=== PATIENT | male | born 2000 | race Caucasian/White ===

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

== ENCOUNTER 2022-01-22 17:58 | Emergency (ER) | payer OTHER, SELFPAY ==
--- NOTE | 2022-01-22 18:13 | ED.URI ---
HPI - URI/Sore Throat General Chief Complaint: Upper Respiratory Infection Stated Complaint: cough,nasal congestion Time Seen by Provider: 01/22/22 18:13 Source: patient Mode of arrival: ambulatory Limitations: no limitations History of Present Illness HPI Narrative: Catracho is a 21-year-old male patient presenting to the clinic today with complaints of cough and runny nose x3 days. He reports he did have a low-grade fever at the beginning of his symptoms however now he is just having congestion and constant coughing. Most the cough is dry however he does bring up mucus at times but does not know the color of the mucus as he does not look. States his symptoms started out as allergies. His brother has a history of asthma. Does have history of eczema and seasonal allergies MD elicited complaint: sore throat and nasal congestion Related Data Allergies Allergy/AdvReac Type Severity Reaction Status Date / Time No Known Allergies Allergy Verified 01/22/22 19:16 Review of Systems Review of Systems: Pertinent positives per HPI. Patient denies any fever, chills, rash, headache, visual changes, dizziness, sore throat, chest pain, palpitations, nausea, vomiting, diarrhea, constipation, abdominal pain, or any urinary issues. PMFSH Past Medical History Medical History Gilbert syndrome Seasonal allergic rhinitis Seasonal allergies Surgical History Surgical History History of hernia surgery History of tonsillectomy Family History Family History Mother No problems noted. Sibling Asthma Grandparent Prostate carcinoma Hypertension Social History Social History Smoking status: Never smoker Alcohol intake: never Substance use: never Gender identity (if verbalized by the patient): Male Spiritual care concerns: No Comments At the time of my signature, I reviewed and agree with the nursing past medical, surgical, social, and family history. There is no relevant family history pertinent to the patient complaint. Exam Narrative: General: Well-developed, well nourished, in no apparent distress Head: Normocephalic, atraumatic Eyes: Pupils equally round and reactive to light bilaterally, EOM intact, sclera and conjunctive clear, no discharge, lids normal Ears: TMs intact and congested, ear canals clear, no drainage, grossly hearing normal. Nose: Nares patent, clear nasal discharge, moderate inflammation, no sinus tenderness. Mouth: Oral pharynx without lesions or masses, good dentition, MMM. Neck: Supple, trachea midline, no enlargement of anterior or posterior cervical nodes, no thyroid masses or goiter palpable. Cardio: Regular rate and rhythm, s1 and s2 normal, no murmur appreciated. Resp: Expiratory wheezing without respiratory difficulty, dry cough, no rhonchi, rales, or rubs Course Course Emergency Course: Portions of this record may have been created with voice recognition software. Level of Care: Express Care Visit Vital Signs Vital signs: Vital Signs Temperature 36.5 C 01/22/22 18:20 Pulse Rate 88 01/22/22 18:20 Respiratory Rate 18 01/22/22 18:20 Blood Pressure 119/81 01/22/22 18:20 Pulse Oximetry 100 01/22/22 18:20 Oxygen Delivery Room Air 01/22/22 18:20 Temperature 36.5 C 01/22/22 18:20 Pulse Rate 97 01/22/22 19:18 Respiratory Rate 18 01/22/22 19:18 Blood Pressure 119/81 01/22/22 18:20 Pulse Oximetry 100 01/22/22 19:18 Oxygen Delivery Room Air 01/22/22 18:20 Vital signs reviewed MDM - URI/Sore Throat MDM Narrative Medical decision making narrative: At the time of visit patient is resting comfortably on exam table. Patient has a dry cough with wheezing. I suspect the patient has bronchitis. Will
[2022-01-22 18:20] VITALS: BP 119/81; PULSE 88; RESP 18; TEMP 36.5; O2SAT 100
[2022-01-22] MEDS: ALBUTEROL SULFATE NEB 2.5 MG/3 ML INH INHALATION (18:59)
[2022-01-22] MEDS: IPRATROPIUM BR 0.02% INH SOLN 0.5 MG/2.5 ML VIAL INHALATION (18:59)
[2022-01-22 19:00] VITALS: PULSE 88; RESP 18; O2SAT 100
[2022-01-22 19:18] VITALS: PULSE 97; RESP 18; O2SAT 100
== END 2022-01-22 19:20 | disposition home or self-care (01) ==
PROVIDERS: Emergency Provider Nurse Practitioner Family; PCP Registered Nurse
DX: J40 Bronchitis, not specified as acute or chronic (principal); E80.4 Gilbert syndrome
CPT/HCPCS: 94640; 99213; G0463

== ENCOUNTER 2022-09-12 09:00 | Emergency (ER) | payer OTHER, SELFPAY ==
[2022-09-12 09:06] VITALS: BP 119/69; PULSE 88; RESP 18; TEMP 36.6; O2SAT 100
--- NOTE | 2022-09-12 09:33 | ED.URI ---
HPI - URI/Sore Throat General Chief Complaint: Upper Respiratory Infection Stated Complaint: Sore Throat,Rt Ear Irritation Time Seen by Provider: 09/12/22 09:22 Source: patient and RN notes reviewed Mode of arrival: ambulatory Limitations: no limitations History of Present Illness HPI Narrative: Patient presents today with a one-week history of rhinorrhea, cough, sneezing, with right ear pain and sore throat that started yesterday. He currently rates his pain 4/10 and has been taking Claritin for his allergies symptoms without much relief. History of tonsillectomy. No recent antibiotic use. Related Data Allergies Allergy/AdvReac Type Severity Reaction Status Date / Time No Known Allergies Allergy Verified 09/12/22 09:01 Review of Systems Review of Systems: CONSTITUTIONAL: Denies body aches, fever, chills, or sweats. EYES: Denies visual changes, redness, or discharge. ENT: Denies congestion.+ rhinorrhea, right ear pain, sore throat, sneezing CARDIOVASCULAR: Denies chest pain, palpitations, or edema. RESPIRATORY: Denies dyspnea.+ cough GASTROINTESTINAL: Denies abdominal pain, nausea, vomiting, or diarrhea. GENITOURINARY: Denies dysuria or hematuria. SKIN: Denies rash, itching, or wounds. MUSCULOSKELETAL: Denies back pain, joint pain, or myalgia. NEUROLOGIC: Denies headache, numbness, tingling, or weakness. PSYCH: Denies depression or anxiety. [facility] Past Medical History Medical History Gilbert syndrome Seasonal allergic rhinitis Seasonal allergies Surgical History Surgical History History of hernia surgery History of tonsillectomy Family History Family History Mother No problems noted. Sibling Asthma Grandparent Prostate carcinoma Hypertension Social History Social History Smoking status: Never smoker Alcohol intake: never Substance use: never Living arrangements: with family Occupation/Education: student Gender identity (if verbalized by the patient): Male Spiritual care concerns: No Comments At time of signature, I have reviewed and agree with nursing past medical, surgical, social and family history unless otherwise noted. Please see nursing chart for further information. There is no relevant family history pertinent to the presenting complaint Exam Narrative: GENERAL: Well-appearing, well-nourished, and in no acute distress. HEAD: Normocephalic, atraumatic. EYES: EOMI. No redness or drainage. Conjunctivae normal. ENT: Mucous membranes pink and moist. Nares congested with rhinorrhea. TMs normal bilaterally. Throat erythematous with mild edema. No exudate. Tonsils absent. Uvula midline. NECK: Normal AROM. Supple. No lymphadenopathy. CHEST: No respiratory distress. Clear to auscultation. HEART: Regular rate and rhythm. No murmur appreciated. EXTREMITIES: Normal range of motion. No edema. SKIN: Warm, dry, no rash. Capillary refill normal. Normal skin turgor. NEURO: No focal deficits. Alert and oriented x3. Gait steady. PSYCH: Normal affect. No signs of depression or anxiety. Course Course Level of Care: Express Care Visit Vital Signs Vital signs: Vital Signs Temperature 97.8 F 09/12/22 09:06 Pulse Rate 88 09/12/22 09:06 Respiratory Rate 18 09/12/22 09:06 Blood Pressure 119/69 09/12/22 09:06 Pulse Oximetry 100 09/12/22 09:06 Oxygen Delivery Room Air 09/12/22 09:06 Temperature 97.8 F 09/12/22 09:06 Pulse Rate 88 09/12/22 09:06 Respiratory Rate 18 09/12/22 09:06 Blood Pressure 119/69 09/12/22 09:06 Pulse Oximetry 100 09/12/22 09:06 Oxygen Delivery Room Air 09/12/22 09:06 Reviewed MDM - URI/Sore Throat MDM Narrative Medical decision making narrative: Rapid str
== END 2022-09-12 09:38 | disposition home or self-care (01) ==
PROVIDERS: Emergency Provider Nurse Practitioner; PCP Registered Nurse
DX: J02.0 Streptococcal pharyngitis (principal); E80.4 Gilbert syndrome
CPT/HCPCS: 87880; 99213; G0463

== ENCOUNTER 2022-09-19 16:58 | Emergency (ER) | payer OTHER, SELFPAY ==
[2022-09-19 17:08] VITALS: BP 110/79; PULSE 83; RESP 20; TEMP 36.6; O2SAT 100
--- NOTE | 2022-09-19 17:28 | ED.URI ---
HPI - URI/Sore Throat General Chief Complaint: Upper Respiratory Infection Stated Complaint: cold symptoms Time Seen by Provider: 09/19/22 17:21 Source: patient, family, RN notes reviewed and old records reviewed Mode of arrival: ambulatory Limitations: no limitations History of Present Illness HPI Narrative: If patient presents today complaining of cough, postnasal drip. He was diagnosed with strep throat at [facility] on 09/12/2022 and placed on 10 days of amoxicillin, which he has been taking as prescribed. Five days ago his cough got worse and he developed a fever for 2 days. The fever has since resolved. He has been trying Benadryl, TheraFlu, cold and flu medicine, and ibuprofen with minimal relief. States his cough is fairly constant. Denies shortness of breath. No history of asthma. States sore throat strep throat has resolved. Related Data Allergies Allergy/AdvReac Type Severity Reaction Status Date / Time No Known Allergies Allergy Verified 09/19/22 17:11 Review of Systems Review of Systems: CONSTITUTIONAL: Denies body aches, fever, chills, or sweats. EYES: Denies visual changes, redness, or discharge. ENT: Denies rhinorrhea, sore throat, or otalgia.+ congestion, postnasal drip CARDIOVASCULAR: Denies chest pain, palpitations, or edema. RESPIRATORY: Denies dyspnea.+ cough GASTROINTESTINAL: Denies abdominal pain, nausea, vomiting, or diarrhea. GENITOURINARY: Denies dysuria or hematuria. SKIN: Denies rash, itching, or wounds. MUSCULOSKELETAL: Denies back pain, joint pain, or myalgia. NEUROLOGIC: Denies headache, numbness, tingling, or weakness. PSYCH: Denies depression or anxiety. [facility] Past Medical History Medical History Gilbert syndrome Seasonal allergic rhinitis Seasonal allergies Surgical History Surgical History History of hernia surgery History of tonsillectomy Family History Family History Mother No problems noted. Sibling Asthma Grandparent Prostate carcinoma Hypertension Social History Social History Smoking status: Never smoker Alcohol intake: never Substance use: never Living arrangements: with family Occupation/Education: student Gender identity (if verbalized by the patient): Male Spiritual care concerns: No Comments At time of signature, I have reviewed and agree with nursing past medical, surgical, social and family history unless otherwise noted. Please see nursing chart for further information. There is no relevant family history pertinent to the presenting complaint Exam Narrative: GENERAL: Well-appearing, well-nourished, and in no acute distress. HEAD: Normocephalic, atraumatic. EYES: EOMI. No redness or drainage. Conjunctivae normal. ENT: Mucous membranes pink and moist. Nares congested. No rhinorrhea. TMs normal bilaterally. Throat normal. Uvula midline. NECK: Normal AROM. Supple. No lymphadenopathy. CHEST: No respiratory distress. Clear to auscultation. Frequent cough noted. HEART: Regular rate and rhythm. No murmur appreciated. Normal peripheral pulses. EXTREMITIES: Normal range of motion. No edema. SKIN: Warm, dry, no rash. Capillary refill normal. Normal skin turgor. NEURO: No focal deficits. Alert and oriented x3. Gait steady. PSYCH: Normal affect. No signs of depression or anxiety. Course Course Level of Care: Express Care Visit Vital Signs Vital signs: Vital Signs Temperature 97.8 F 09/19/22 17:08 Pulse Rate 83 09/19/22 17:08 Respiratory Rate 20 09/19/22 17:08 Blood Pressure 110/79 09/19/22 17:08 Pulse Oximetry 100 09/19/22 17:08 Oxygen Delivery Room Air 09/19/22 17:08 Temperature 97.8 F 09/19/22 17:08 Pulse Rate 83 09/19/22 17:08 Respir
== END 2022-09-19 17:33 | disposition home or self-care (01) ==
PROVIDERS: Emergency Provider Nurse Practitioner; PCP Registered Nurse
DX: J40 Bronchitis, not specified as acute or chronic (principal)
CPT/HCPCS: 99213; G0463

== ENCOUNTER 2023-03-16 10:59 | Emergency (ER) | payer OTHER, SELFPAY ==
[2023-03-16 11:12] VITALS: BP 111/70; PULSE 71; RESP 18; TEMP 36.4; O2SAT 99
--- NOTE | 2023-03-16 11:54 | ED.URI ---
HPI - URI/Sore Throat General Chief Complaint: Upper Respiratory Infection Stated Complaint: Sore Throat,Headache Source: patient Mode of arrival: ambulatory Limitations: no limitations History of Present Illness HPI Narrative: 22-year-old male presents to [facility] with complaints of sore throat, headache and chills for the last 2-3 days. Patient reports that he is exposed to strep throat at work approximately 4-5 days ago from a co-worker. Patient reports history of strep throat. Patient reports that he has tonsils removed as a child. Patient reports he has been alternating Motrin and Tylenol little relief. Patient denies fevers, cough, shortness of breath, wheezing, nausea vomiting or diarrhea. MD elicited complaint: sore throat Onset (ago): day(s) (3) Consistency: constant Able to tolerate fluids by mouth: Yes Exacerbating factors: swallowing Context: sick contacts Treatments prior to arrival: acetaminophen and ibuprofen Related Data Allergies Allergy/AdvReac Type Severity Reaction Status Date / Time No Known Allergies Allergy Verified 09/25/22 18:29 Review of Systems Constitutional: Constitutional: Reports chills, Denies fatigue, Denies fever(s) and Denies weakness ENT: Denies vertigo, Denies dizziness, Denies epistaxis, Denies nasal congestion and Reports sore throat Respiratory: Respiratory: Denies cough, Denies dyspnea and Denies wheezing Gastrointestinal: Gastrointestinal: Denies diarrhea, Denies nausea and Denies vomiting Integumentary/Breasts: Skin/Breast: Denies rash Neurologic: Denies confusion, Denies vertigo, Denies dizziness, Denies syncope and Reports headache(s) [facility] Past Medical History Medical History Gilbert syndrome Seasonal allergic rhinitis Seasonal allergies Surgical History Surgical History History of hernia surgery History of tonsillectomy Family History Family History Mother No problems noted. Sibling Asthma Grandparent Prostate carcinoma Hypertension Social History Social History Smoking status: Never smoker Alcohol intake: never Substance use: never Living arrangements: with family Occupation/Education: student Gender identity (if verbalized by the patient): Male Spiritual care concerns: No Comments At time of signature, I agree with nursing past medical, surgical, social and family history. There is no relevant family history pertinent to the presenting complaint. Exam Const: General: healthy appearing and no acute distress Nutritional Appearance: well nourished Orientation/consciousness: patient oriented x3 Limitations: no limitations HENMT: Head: normal to inspection Ears: external ears normal and TM's normal bilaterally Face/Nose/Sinus: Normal external nose present Face and sinus: normal facial exam Mouth: Yes lip normal and Yes moist mucous membranes Teeth and gingiva: dentition normal Throat: uvula midline Other: Erythema noted to posterior pharynx. Tonsils are absent. Eyes: Conjunctivae: conjunctivae normal Neck: Neck: normal visual inspection Resp: Effort & Inspection: normal respiratory effort and not labored Auscultation: clear to auscultation bilaterally, no crackles, no rales and no rhonchi Cardio: Rate: regular rate Rhythm: regular rhythm Heart sounds: no murmurs Skin: General skin exam: normal color Rashes: no rashes Neuro: General: patient oriented x3 Speech: normal speech Psych: Affect: normal affect Attitude: cooperative Course Course Level of Care: Express Care Visit Vital Signs Vital signs: Vital Signs Temperature 36.4 C 03/16/23 11:12 Pulse Rate 71 03/16/23 11:12 Respiratory Rate 18 03/16/23 11:12 Blood Pressure 111/70 03/16/23 11:12 Pulse Oximetry 99
== END 2023-03-16 12:05 | disposition home or self-care (01) ==
PROVIDERS: Emergency Provider Nurse Practitioner Family
DX: J02.9 Acute pharyngitis, unspecified (principal); E80.4 Gilbert syndrome
CPT/HCPCS: 87081; 87880; 99213; G0463

== ENCOUNTER 2025-02-11 16:50 | Emergency (ER) | payer OTHER, SELFPAY ==
--- OUTSIDE RECORDS SUMMARY | 2025-02-11 16:52 | XMS_ITS | Clinical Summary ---
Author Organization [facility] Address [address] [place] [address] Care Team Providers Care Student Records Coordinator Name Role Phone Carlito Winchester Primary Care Provider [phone] Allergies No known active allergies Medications fluticasone propionate 50 MCG/ACT nasal spray 1 spray by Nasal route daily. Active albuterol sulfate HFA 108 (90 Base) MCG/ACT inhaler INHALE 2 PUFF INHALED EVERY 4 - 6 HOURS NEEDED FOR SHORTNESS OF BREATH OR WHEEZING FOR 30 DAYS 2 Active doxycycline hyclate (VIBRAMYCIN) 100 MG capsuleIndicatio ns:Need for malaria prophylaxis Take one capsule daily starting 2 days before travel and continuing for 30 more days 32 capsule 5 Active Active Problems Problem Noted Date Diagnosed Date Viral syndrome 11/30/2020 Torticollis 07/24/2016 Allergic rhinitis 11/30/2013 Resolved Problems Problem Noted Date Diagnosed Date Resolved Date Need for HPV vaccine 02/17/2016 021 Wears glasses 11/04/2015 07/04/2020 Well child visit 10/25/2015 07/04/2020 Immunizations Immunization Administration Dates Next Due Dtap 03/21/2004, 4,04/23/2003,2002 Dtap (Acel-Immune) 06/01/2008 Dtap (Generic) 06/01/2008 Fluzone 6 Months+ Quad (0.5 mL Prefilled Syringe) 02/16/2022 HPV GARDASIL 9-VALENT 08/27/2016 HPV4 (Gardasil) 03/30/2016,02/17/2016 Hepatitis A Vaccine - 2 Dose 10/15/2017,10/21/19 15 Hepatitis B Pediatric 03/21/2004,04/23/2003,01/21 Hib Vaccine, Prp-Omp 03/21/2004,04/23/2003,02/15 Influenza (FluMist) 03/06/2011,05/08/2010 Influenza (Generic) 02/24/2014, 7,02/07/2006,2004,03/13/2004 Influenza Adult (Generic) 02/25/2020 MMR 06/01/2008,12/20/2003 Menactra 11/26/2019,11/04/2015 Pneumococcal (Generic) 12/20/2003 Pneumococcal (Prevnar 7) 06/19/2004,06/22/2003,1 Pneumococcal Vaccine 12/20/2003 Polio Ipv (Generic) 06/01/2008, 4,06/22/2003,2002 Tdap (Generic) 11/04/2015 Varicella Vaccine 06/01/2008,06/19/2004 Family History Medical History Relation Comments Asthma Brother No Known Problems Father Cancer Maternal Grandfather prostate Hyperlipidemia Maternal Grandfather No Known Problems Maternal Grandmother No Known Problems Mother No Known Problems Paternal Grandfather No Known Problems Paternal Grandmother Relation Status Comments Brother Alive Father Alive Maternal Grandfather Alive Maternal Grandmother Alive Mother Alive Paternal Grandfather Paternal Grandmother Social History Tobacco Use Types Packs/Day Years Used Date Smoking Tobacco: Never Smokeless Tobacco: Never Tobacco Cessation:Counseling Given: No Alcohol Use Standard Drinks/Week Comments Never 0 (1 standard drink = 0.6 oz pur e alcohol) AUDIT-C Answer Date Recorded Q1: How often do you have a drink containing alc ohol? 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 Gender Identity Not on file Sexual Orientation Not on file Last Filed Vital Signs Vital Sign Reading Time Taken Comments Blood Pressure 138/88 07/28/2024 7:03 AM CDT Pulse 81 07/28/2024 7:03 AM CDT Temperature 36.5 C (97.7 F) 07/28/2024 7:03 AM CDT Respiratory Rate 16 07/28/2024 7:03 AM CDT Oxygen Saturation 100% 07/28/2024 7:03 AM CDT Inhaled Oxygen Concentration - - Weight 77.6 kg (171 lb) 07/28/2024 7:03 AM CDT Height 170.2 cm (5' 7) 07/28/2024 7:03 AM CDT Body Mass Index 26.78 07/28/2024 7:03 AM CDT Plan of Treatment Health Maintenance Due Date Last Done Comments Meningococcal B Vaccine (1 of 2 - Standard) 2018 Hepatitis C 2020 COVID-19 Vaccine ( - season) 2024 04/07/2021, 08/09/2020, 07/18/2020 Influenza Adult (#1) 2025 02/16/2022, 02/25/2020, 02/24/2014, Additional history exists Annual Physical 07/28/2025 07/28/2024, 07/22, 10/27/2020 DTaP, Tdap and Td Vaccines (7 - Td or Tdap) 11/03/2025 11/04/2015, 06/01/2008, 06/01/2008, Additional history exists Hepatitis B Vaccines Completed 03/21/2004, 04/23/2003, 02/15/2003 Pneumococcal Vaccine: Pediatrics (0 to 5 Years) and At-Risk Patients (6 to 49 Years) Aged Out 06/19/2004, 12/20/2003, 12/20/2003, Additional history exists No longer eligible based on patient's age to complete this topic HPV Vaccines Completed 08/27/2016, 1212/2015, 02/17/2016 Hepatitis A Vaccines Completed 10/15/2017, 10/21/19 15 Meningococcal Vaccine Completed 11/26/2019, 016 PHQ-2 (Physician [place]) Completed 07/28/2024 RSV Immunizations Under 20 Months Aged Out No longer eligible based on patient's age to complete this topic Insurance [employer] OPEN ACCESS [facility] Care Teams Student Records Coordinator Relationship Specialty Start [place] [address] [place] [address] PCP - General Physician Electric Furnace Operator Medical 07/16/24
--- OUTSIDE RECORDS SUMMARY | 2025-02-11 16:52 | XMS_ITS | Clinical Summary ---
Author Organization [facility] Address [address] [place] [address] Care Team Providers Care Deli Bakery Clerk Name Role Phone Carmelo Freire MD Primary Care Provider [phone] Source Comments [facility],non-owned Affiliates and Associated Physician Practices is amultiple site organization consisting of ambulatory clinics and hospital sitesin [place], [place], [place] and [place]. This disclosure is being madepursuant to the Care Everywhere program and may not contain all information available regarding this patient. Last updated 18.[facility] Allergies No known active allergies Medications * Be aware that medications may not be up to date on this document. Alwaysverify current medications with the patient. fluticasone propionate (FLONASE) 50 MCG/ACT nasal spray [place] 1 [place] into each nostril once daily. 1 Bottle 4 03/12/2014 Active Cetirizine HCl (ZYRTEC PO) Take by mouth. Active fluticasone (CUTIVATE) 0.05 % cream Apply 1 drop to affected area once daily 11/05/2018 Active minocycline (MINOCIN) 50 MG capsule Take 50 mg by mouth 2 times daily 11/06/2018 Active tretinoin (RETIN-A) 0.025 % cream Apply 1 drop to affected area every other day 11/10/2018 Active Active Problems Problem Noted Date Diagnosed Date Allergic rhinitis 11/30/2013 Resolved Problems Problem Noted Date Diagnosed Date Resolved Date Cough 05/31/2014 09/01/2014 Immunizations Immunization Administration Dates Next Due INFLUENZA VACCINE, TRIV. (AF LURIA, FLUZONE TRIVALENT; 6MO+) (IIV3) 02/24/2014 DTaP VACCINE IM (6wk-6yrs) 06/01/2008,,06/22/2003,04/23,02/15/2003 HEP A PEDS 2 DOSE 10/15/2017,10/20/2014 HEP B VACCINE, PED/ADOL 03/21/2004,04/23/2003, HIB-PRP-OMP 3 DOSE 03/21/2004,04/23/2003, 003 Human Papilloma Virus Vaccine 08/24/2016, 016,02/17/2016 INFLUENZA VACCINE 01/28/2007, 6,01/16/2005,03/13 INFLUENZA VACCINE, QUADR. (F LUZONE; FLULAVAL; FLUARIX; AFLURIA QUADRIVALENT; 6MO+), 0.5 ML (IIV4) 02/25/2020 Influenza Nasal 03/06/2011,05/08/2010 MENINGOCOCAL MENINGITIS 11/04/2015 MENINGOCOCCAL ACWY (MCV4P) VAC IM 11/26/2019 MMR 06/01/2008,12/20/2003 PNEUMOCOCCAL PCV7 CONJ, PEDS 06/19/2004, 12/20/2003,06/22/2003,02/15 POLIO IPV 06/01/2008, 4,06/22/2003,03/22 TDAP (7yrs+) 11/04/2015 VARICELLA 06/01/2008,06/19/2004 Family History Medical History Relation Name Comments Cancer - Colon Other Asthma Neg Hx Eczema Neg Hx Hypertension Neg Hx Migraine Neg Hx Seizures Neg Hx Sudd. 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 Respiratory Rate 18 09/02/2014 12:2 2 PM CDT Oxygen Saturation 100% 10/15/2017 1:24 PM CDT Inhaled Oxygen Concentration - - Weight 62.5 kg (137 lb 12.8 oz) 11/26/2019 3:11 PM CDT Height 167.6 cm (5' 6) 11/26/2019 3:11 PM CDT Body Mass Index 22.24 11/26/2019 3:11 PM CDT Plan of Treatment Health Maintenance Due Date Last Done Comments HIV SCREENING 2017 MENINGOCOCCAL (Group B) VACC INE SHARED DECISION-MAKING (1 of 2 - Standard) 2018 HEPATITIS C SCREENING 12/13/2020 DEPRESSION SCREENING 04/22/2024 11/26/2019 COVID-19 VACCINE (2023-2 5 season) 2024 INFLUENZA VACCINE (#1) 2024 0, 02/24/2014, 03/06/2011, Additional history exists DTAP/TDAP/TD VACCINES (7 - T d or Tdap) 11/03/2025 11/04/2015, 06/01/2008, 03/21/2004, Additional history exists ZOSTER VACCINE (1 of 2) 2052 HEPATITIS B VACCINE Completed 03/21/2004, 04/23/2003, 02/15/2003 HIB VACCINE Completed 03/21/2004, 05/2003, 02/15/2003 PNEUMOCOCCAL VACCINE Completed 06/19/2004, 12/20/2003, 06/22/2003, Additional history exists HPV VACCINE Completed 08/24/2016, 12/2015, 02/17/2016 MENINGOCOCCAL GROUPS A/C/Y/W VACCINE Completed 11/26/2019, 11/04/2015 Goals Goal Patient Goal Type Associated Problems Recent Progress Patient-Stated? Author Use safety retraint in car Lifestyle On track( 020 3:11 PM CDT) No Radha Zimmer MA Insurance [employer] Care Teams Deli Bakery Clerk Relationship Specialty Start Date End Date Carmelo Freire MD [address] [place] [address] PCP - General Pediatrics 10/15/17
--- OUTSIDE RECORDS SUMMARY | 2025-02-11 16:52 | XMS_ITS | Encounter Summary ---
Author Organization [facility] Address [address] [place] [address] Care Team Providers Care Diesel Crane Operator Name Role Phone Abisai Christie MD Primary Care Provider [phone] Daquan Pearce MD Primary Care Provider [phone] Carlito Winchester Primary Care Provider [phone] Encounter Details Date Type Department Care Team (Late st Contact Info) Description 05/31/2024 [facility] Message [address] [place] [address] Abisai Christie MD [address] [address] Medication Question - [place]/Malaria Social History Tobacco Use Types Packs/Day Years Used Date Smoking Tobacco: Never Smokeless Tobacco: Never Alcohol Use Standard Drinks/Week Comments Never 0 (1 standard drink = 0.6 oz pur e alcohol) AUDIT-C Answer Date Recorded Q1: How often do you have a drink containing alc ohol? 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 Thank you! TREATER documented in this encounter Plan of Treatment Not on file documented as of this encounter Visit Diagnoses Not on filedocumented in this encounter Care Teams Diesel Crane Operator Relationship Specialty [place] [address] [place] [address] PCP - General FAMILY PRACTICE 06/28/20 07/12/24 [place] [address] [address] PCP - General INTERNAL MEDICINE 07/13/24 07/15/24 [place] [address] [place] [address] PCP - General Physician Belt Line Feeder Medical 07/16/24 documented as of this encounter
--- OUTSIDE RECORDS SUMMARY | 2025-02-11 16:52 | XMS_ITS | Clinical Summary ---
Author Organization [facility] Address [address] [place] [address] Phone Care Team Providers Care Prep Room Supervisor Name Role Phone Provider, None Primary Care Provider Unavailabl e Allergies No known active allergies Medications No known medications Active Problems No known active problems Social History Tobacco Use Types Packs/Day Years Used Date Smoking Tobacco: Never Smokeless Tobacco: Never Sex and Gender Information Value Date Recorded Sex Assigned at Not on file Legal Sex Male 2:48 AM CPAS Gender Identity Not on file Sexual Orientation Not on file Last Filed Vital Signs Vital Sign Reading Time Taken Comments Blood Pressure 109/58 09/30/2016 11:51 AM CDT Pulse 81 09/30/2016 11:51 AM CDT Temperature 37.1 C (98.7 F) 09/30/2016 11:51 AM CDT Respiratory Rate - - Oxygen Saturation 100% 09/30/2016 11:51 AM CDT Inhaled Oxygen Concentration - - Weight 43.1 kg (95 lb) 09/30/2016 11:51 AM CDT Height 160 cm (5' 3) 09/30/2016 11:51 AM CDT Body Mass Index 16.83 09/30/2016 11:51 AM CDT Plan of Treatment Health Maintenance Due Date Last Done Comments Hepatitis C Virus (HCV) Screening 2002 TdaP Immunization 2002 Human Papillomavirus (HPV) Immunization (1 - Male 3-dose series) 2017 Meningococcal B Immunization (1 of 2 - Standard) 2018 Hepatitis B Immunization (1 of 3 - 19+ 3-dose series) 2021 Influenza Immunization (#1) 2024 SARS-COV-2 Immunization ( - season) 2024 Respiratory Syncytial Virus (RSV) Immunization (Adult) (1 - 1-dose 75+ series) 2077 Meningococcal Immunization (ACWY) Aged Out No longer eligible based on patient's age to complete this topic Pneumococcal Immunization Combined Aged Out No longer eligible based on patient's age to complete this topic Rotavirus Immunization Aged Out No lo nger eligible based on patient's age to complete this topic Insurance [facility] Care Teams Prep Room Supervisor Relationship Specialty Start Date End Date Provider, None [place] PCP - General 09/30/16
--- NOTE | 2025-02-11 16:54 | ED_ITS ---
HPI - URI/Sore Throat General Chief Complaint: Upper Respiratory Infection Stated Complaint: cough / congestion Time Seen by Provider: 02/11/25 16:55 Source: patient and RN notes reviewed Mode of arrival: ambulatory Limitations: no limitations History of Present Illness HPI Narrative: 44-year-old male presents with concern for 4 day history of nasal congestion and drainage, cough. Reports he had a sore throat Saturday that went away. He denies fever, body aches, sweats. Reports feeling cold. He has taken ibuprofen. MD elicited complaint: cough and rhinorrhea Related Data Allergies Allergy/AdvReac Type Severity Reaction Status Date / Time No Known Allergies Allergy Verified 02/11/25 16:55 Review of Systems Review of Systems: CONSTITUTIONAL: Denies malaise, sweats, or fever. EYES: Denies visual changes, redness, or discharge. ENT: Reports rhinorrhea, congestion. Denies sinus pain, otalgia and sore throat. CARDIOVASCULAR: Denies chest pain, palpitations, or edema. RESPIRATORY: Reports cough. Denies dyspnea. GASTROINTESTINAL: Denies abdominal pain, nausea, vomiting, diarrhea SKIN: Denies rash or itching. MUSCULOSKELETAL: Denies myalgia. NEUROLOGIC: Denies headache. All systems reviewed & are unremarkable except as noted in HPI and below PMFSH Past Medical History Medical History Gilbert syndrome Seasonal allergic rhinitis Seasonal allergies Surgical History Surgical History History of hernia surgery History of tonsillectomy Family History Family History Mother No problems noted. Sibling Asthma Grandparent Prostate carcinoma Hypertension Social History Social History Smoking status: Never smoker Alcohol intake: never Substance use: never Living arrangements: with family Occupation/Education: student Gender identity (if verbalized by the patient): Male Spiritual care concerns: No Comments At time of signature, agree with nursing past medical, surgical, social and family history. There is no relevant family history pertinent to the presenting complaint Exam Narrative: GENERAL: Well-appearing, well-nourished, and in no acute distress. HEAD: Normocephalic EYES: PERRLA, conjunctivae clear ENT: Nares clear, turbinates edematous and erythematous, clear discharge. Mucous membranes moist. TM pearly pulido with dull light reflex bilaterally; no tragal tenderness. Oropharynx not erythematous without lesions. Tonsils not enlarged and without exudate, no drooling, no hoarseness, no trismus, uvula midline. NECK: Supple. No lymphadenopathy CHEST: Clear to auscultation, breath sounds equal. No wheezing, rhonchi, rales, or stridor. No respiratory distress, speaks in full sentences. HEART: Regular rate and rhythm. No murmur heard. SKIN: Warm, dry, no rash. NEURO: Alert and oriented x3. PSYCH: Normal mood and affect Course Course Emergency Course: Patient is aware of diagnosis, understands and agrees to treatment plan. Anticipatory guidance given. Patient agrees to follow-up as directed and is aware of reasons to seek care at the emergency department. Portions of this record may have been created with voice recognition software Level of Care: Express Care Visit Vital Signs Vital signs: Reviewed. MDM - URI/Sore Throat MDM Narrative Medical decision making narrative: Differential diagnosis considered: Stone virus, strep pharyngitis, allergic rhinitis, upper respiratory tract infection, sinusitis, rhinosinusitis, nasopha ryngitis. viral pharyngitis, otitis media, otitis externa, pneumonia, bronchitis, viral cough syndrome, viral syndrome, and influenza. Exam findings show no acute concerns or changes; patient is non-toxic appearing and is in no distress. Patient is appropriate for outpatient treatment and follow-up. Lab Data Attestation: I reviewed the patient's lab results. Critical Care Time Critical Care Time Critical Care Time: No Discharge Plan Discharge Clinical Impression: Upper respiratory infection with cough and congestion Patient Disposition: Home Condition: Stable Instructions: Acute Cough (ED) Additional Instructions: Viral illness may last between 7-21 days; antibiotics do not cure viral illness and are NOT recommended at this time. Recommend antihistamine such as Benadryl at night time and Zyrtec or Kelin during the day Cough syrup may cause drowsiness; avoid driving or take it at night time. Also, recommend symptomatic treatment includes: rest, fluids, and increase humidity of the air at home. Recommend Acetaminophen as directed on the bottle to reduce fever, pain, headache. Avoid smoking/second-hand smoke. Please schedule a follow-up visit with your personal physician for further evaluation and treatment within 3-5days. Including recheck and discussion of your blood pressure. If your symptoms persist, change or worsen significantly before you can contact your personal physician then please, without delay, go to the emergency department for further evaluation. Patient Language: Comoran Prescriptions: New promethazine-DM 6.25-15 mg/5 mL syrup 5 ml PO Q4-6H PRN (Reason: cough) Qty: 120 0RF prednisone 20 mg tablet 40 mg PO DAILY 5 Days Qty: 10 0RF ipratropium bromide 21 mcg (0.03 %) spray,non-aerosol 2 spray NASAL TID PRN (Reason: nasal drainage) Qty: 30 0RF Rx Instructions: administer into each nostril Follow-up/Referrals: PHYSICIAN,DIRECTOR MISSION [Primary Care Provider, Internal Medicine] Time of Disposition: 17:07
[2025-02-11 16:57] VITALS: BP 140/77; PULSE 103; RESP 18; TEMP 36.6; O2SAT 100
== END 2025-02-11 17:10 | disposition home or self-care (01) ==
PROVIDERS: Emergency Provider Nurse Practitioner
DX: J06.9 Acute upper respiratory infection, unspecified (principal); R05.9 Cough, unspecified; E80.4 Gilbert syndrome
CPT/HCPCS: 99213; G0463